=== PATIENT | male | born 1950 | race Caucasian/White ===

== ENCOUNTER → 2022-11-12 | Outpatient (CLI) | payer MEDICARE | LOC: M WHC 13:47 | PROVIDERS: ATTEND Internal Medicine | DX: M89.9 Disorder of bone, unspecified (principal); Z79.52 Long term (current) use of systemic steroids ==

== ENCOUNTER → 2022-12-11 | Outpatient (REF) | payer MEDICARE | LOC: M SFHCRHEU 10:53 | PROVIDERS: ATTEND Internal Medicine | DX: R31.9 Hematuria, unspecified (principal) ==

== ENCOUNTER → 2023-01-09 | Outpatient (REF) | payer MEDICARE ==
[2023-01-09 13:51] LABS: PHOSPHORUS LEVEL 2.5 MG/DL (2.4-5.1)
== END ==
LOC: M SFHCRHEU 10:47
PROVIDERS: ATTEND Internal Medicine
DX: M89.9 Disorder of bone, unspecified (principal)

== ENCOUNTER → 2023-07-16 | Outpatient (REF) | payer MEDICARE | LOC: M SFHCWOUN 12:42 | PROVIDERS: ATTEND Physician Assistant | DX: L81.9 Disorder of pigmentation, unspecified (principal) ==

== ENCOUNTER → 2023-08-04 | Outpatient (CLI) | payer MEDICARE | LOC: M RAD 09:58 | PROVIDERS: ATTEND Physician Assistant | DX: L97.912 Non-pressure chronic ulcer of unspecified part of right lower leg with fat layer exposed (principal); I80.01 Phlebitis and thrombophlebitis of superficial vessels of right lower extremity; R09.89 Other specified symptoms and signs involving the circulatory and respiratory systems ==

== ENCOUNTER → 2023-09-02 | Outpatient (CLI) | payer MEDICARE | LOC: M RAD 08:02 | PROVIDERS: ATTEND Physician Assistant Medical | DX: H90.A31 Mixed conductive and sensorineural hearing loss, unilateral, right ear with restricted hearing on the contralateral side (principal) ==

== ENCOUNTER → 2023-09-30 | Outpatient (CLI) | payer MEDICARE | LOC: M RAD 13:36 | PROVIDERS: ATTEND Internal Medicine | DX: M16.0 Bilateral primary osteoarthritis of hip (principal); M17.0 Bilateral primary osteoarthritis of knee ==

== ENCOUNTER → 2023-10-29 | Outpatient (REF) | payer MEDICARE | LOC: M SFHCRHEU 17:34 | PROVIDERS: ATTEND Internal Medicine | DX: M32.9 Systemic lupus erythematosus, unspecified (principal) ==

== ENCOUNTER → 2024-03-17 | Outpatient (CLI) | payer MEDICARE ==
[~2024-03-17] MED LIST: ACET650T61 PO; CETI10CH PO; FAMO40TA3; GASTROGRAFIN SOLUTION 30ML As Ordered ONE; ISOVUE-370 76% 100ML VIAL As Ordered ONE; LEXA1TAB2 PO; MULT-90 PO
== END ==
LOC: M RAD 11:23
PROVIDERS: ATTEND Internal Medicine Hematology & Oncology
DX: C41.9 Malignant neoplasm of bone and articular cartilage, unspecified (principal)
CPT/HCPCS: 71260; 74177; Q9963; Q9967